=== PATIENT | male | born 1995 | race Caucasian/White ===

== ENCOUNTER 2019-05-07 13:56 | Emergency (ER) | payer BC ==
[2019-05-07] MEDS ORDERED: Bacitracin Oint 1 GM U/D Packet TOP ONE (14:28)
[2019-05-07] MEDS ORDERED: Diphtheria,Pertussis(Acell),Tetanus Vaccine 0.5 ML SDV IM ONE (14:46)
[2019-05-07] MEDS ORDERED: Diphtheria,Pertussis(Acell),Tetanus Vaccine 0.5 ML SDV ONE (14:49)
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
== END 2019-05-07 15:16 | disposition home or self-care (01) ==
LOC: JP.ED 13:56
DX: S02.2XXA Fracture of nasal bones, initial encounter for closed fracture (principal); S01.21XA Laceration without foreign body of nose, initial encounter; Z23 Encounter for immunization; W22.8XXA Striking against or struck by other objects, initial encounter
CPT/HCPCS: 12011; 70160; 90471; 99283-25